=== PATIENT | female | born 1990 | race Caucasian/White ===

== ENCOUNTER 2018-10-20 10:39 | Emergency (ER) | payer OTHER, SELFPAY ==
--- NOTE | 2018-10-20 10:47 | NUR.NOTE ---
pt believes she was exposed to poison jeff 8 days ago. pt has blistering rashes on both arms and lower legs
[2018-10-20 10:48] VITALS: PULSE 75; RESP 17; TEMP 36.8; O2SAT 99
--- NOTE | 2018-10-20 11:08 | W.ED.GENAD ---
Discharge Plan Disposition Patient Disposition: HOME Condition: Good Discharge Details Chief Complaint: RashLesion Clinical Impression: Poison christie Primary Care Provider: Brooke,Local ED Provider: Wenceslao Boudreaux Home Meds and New Rx's Prescriptions: New prednisone 20 mg tablet 20 mg PO DAILY Qty: 42 RF: 0 betamethasone valerate 0.1 % cream 1 applic TP BID Qty: 15 RF: 0 Discharge Instructions Instructions: Poison Christie (ED) Additional Instructions: You have a poison christie exposure. My recommendation is to start the steroids as directed. If you want to wait and try the topical steroids first that is fine, but if you note no improvement with this after 3 days of application please start the oral steroids. Please in addition to the prescribed medication apply bacitracin, neomycin, triple antibiotic to your lesions twice daily. If you notice any worsening of your symptoms, or any new symptoms such as spreading of the rash, vomiting, diarrhea, fever, chills, shortness of breath, chest pain, numbness, weakness, or fainting , please return immediately to the emergency department for reevaluation. Please follow up with your primary care provider as soon as possible for reassessment and reevaluation. As always, it was a pleasure participating in your medical care today. Discharge Data Discharge Date/Time-TO BE ENTERED AT DEPARTURE: 10/20/18 11:40 Medical Decision Making This is a pleasant 28-year-old female who presents today for evaluation of rash on her bilateral medial thighs and bilateral medial arms. She came in contact with poison christie 8 days ago, and the rashes not been improving with calamine lotion. Exam demonstrate signs and symptoms clinically consistent with poison christie rash. Patient is requesting to trial topical steroids before oral steroids. She does not live in the area. We will give her a prescription for topical steroids however I have made it clear that medical treatment is indicated with a prolonged course of oral steroids at this stage. Discussed red flags for which to return. We will give her a prescription for the long course of steroids as well. I have extensively reviewed the treatment plan and discharge instructions with the patient and their family. I have addressed all patient concerns at this time. The patient and family was made aware of what symptoms to monitor for that would warrant a return to the emergency department. Discussed the plan with the patient and family, they demonstrate verbal understanding and agreement with our assessment and plan at this time. HPI General Date/Time Provider Initiated Documentation: 10/20/18 10:46. HPI Narrative: This is a pleasant 28-year-old female who presents today for evaluation of rash. She came in contact with poison christie roughly 8 days ago, she has been placing calamine lotion on her rash but this is not been improving her symptoms. Rash is located on her medial thighs, medial aspect of her arm, and on some lower spots on her legs. She denies any fever, chills, redness. She denies any complaints of oral lesions. She denies any other pertinent medical history. She has had allergic reactions like this to poison christie in the past. Related Data Home Medications Medication Instructions Recorded Confirmed betamethasone valerate 1 applic TP BID #15 gm 10/20/18 prednisone 20 mg PO DAILY #42 tab 10/20/18 Previous Rx's Medication Instructions Recorded betamethasone valerate 1 applic TP BID #15 gm 10/20/18 prednisone 20 mg PO DAILY #42 tab 10/20/18 Allergies Allergy/AdvReac Type Severity Reaction Status Date / Time No Known Allergies Allergy Unverified 10/20/18 10:50 General Stated Complaint: RashLesion KELSIE: 4 Review of Systems Review of Systems All systems reviewed & are unremarkable except as noted in HPI and below PFSH Social History Smoking/Tobacco Use Status: Never Alcohol Intake: current Alcohol Intake frequency: 0-2 drinks per day Drug use: Never Substance use type: does not use Do you feel safe at home: Yes Do you feel safe in your relationship?: Yes Exam Narrative Exam Narrative: 1.Const: Well-nourished, Well-developed, appearing stated age 2.Eyes: PERRL, no conjunctival injection, and symmetrical lids. 3.ENT: Atraumatic external nose and ears. Moist MM. Neck: Symmetric, trachea midline, No thyromegaly. 4.CVS: +S1/S2, No murmurs or gallops. Peripheral pulses 2+ and equal in all extremities. Brisk capillary refill in all extremities. 5.RESP: Unlabored respiratory effort. Clear to auscultation bilaterally. No wheezes rales or rhonchi 6.GI: Soft, Nontender/Nondistended, No hepatosplenomegaly. No guarding or rebound. 7.MSK: Normocephalic/Atraumatic, Extremities w/o deformity or ttp No cyanosis or clubbing, Normal movement of all extremities 8.Skin: Skin demonstrates 5 or 6 patches between the thighs and medial arms medically consistent with poison christie reaction. Patient does demonstrate minimal erythema with a honey colored clear exudate and small blisters. Negative Nikolsky sign. No evidence of superimposed superinfection 9.Neuro: coarse wire drawer II-XII grossly intact. Sensation grossly intact, no focal neurologic deficits. 10.Psych: (AAO) x3. Appropriate mood and affect Course Vital Signs Temperature 36.8 C 10/20/18 10:48 Pulse 75 10/20/18 10:48 Respiratory Rate 17 10/20/18 10:48 Pulse Oximetry 99 10/20/18 10:48 Temperature 36.8 C 10/20/18 10:48 Temperature Source Skin 10/20/18 10:48 Pulse 75 10/20/18 10:48 Respiratory Rate 17 10/20/18 10:48 Respiratory Effort 10/20/18 10:53 Pulse Oximetry 99 10/20/18 10:48 Oxygen Delivery Method Room Air 10/20/18 10:48 Oxygen Flow Rate 0 10/20/18 10:48 Pain Level 3 10/20/18 10:48
[2018-10-20 11:37] VITALS: PULSE 75; RESP 17; TEMP 36.8; O2SAT 99
== END 2018-10-20 11:40 | disposition home or self-care (01) ==
LOC: ER 11:45
PROVIDERS: Emergency Provider Student in an Organized Health Care Education/Training Program
DX: L23.7 Allergic contact dermatitis due to plants, except food (principal)
CPT/HCPCS: 99283